=== PATIENT | male | born 1965 | race Hispanic/Latino ===

== ENCOUNTER 2021-04-15 09:38 | Emergency (ER) | payer SELFPAY ==
--- NOTE | 2021-04-15 12:39 | Emergency Department Report ---
ED General Adult HPI - General Chief complaint: Urogenital-Male Stated complaint: BLOOD IN URINE, LW BACK PAIN Time Seen by Provider: 04/15/21 12:29 Source: patient Mode of arrival: Ambulatory Limitations: No Limitations - History of Present Illness Initial comments: Patient is a 56-year-old male presents emergency with complaints of an exacerbation of his left flank pain that occurred over the last few days. Patient states that he is currently under the care of urologist. He states he has had multiple lithotripsies and currently has a ureteral stent in place. He states that they were planning to remove the stent next week on 04/22/21. He states that his doctor's office called him today and advised him that he had a urinary tract infection and reports that they called him medications but he has not started them and he states he believes it was amoxicillin. He has associated hematuria, bright red blood per rectum when wiping, dysuria, urinary frequency, urinary urgency. He denies any vomiting, diarrhea, fever, abdominal pain. Past medical history of CAD, A. fib, nephrolithiasis, internal hemorrhoids. He denies any medication allergies. - Related Data Previous Rx's Medication Instructions Recorded Last Taken Type Ciprofloxacin HCl [Ciprofloxacin 500 mg PO BID 7 Days #28 tablet 04/15/21 Unknown Rx TAB] Promethazine [Phenergan] 25 mg PO Q8HR PRN #10 tab 04/15/21 Unknown Rx traMADoL [Ultram 50 MG tab] 50 mg PO Q6HR PRN #12 tablet 04/15/21 Unknown Rx Allergies Allergy/AdvReac Type Severity Reaction Status Date / Time No Known Allergies Allergy Unverified 04/15/21 14:26 ED Review of Systems ROS: Stated complaint: BLOOD IN URINE, LW BACK PAIN Other details as noted in HPI Comment: All other systems reviewed and negative ED Past Medical Hx - Past Medical History Previous Medical History?: Yes Additional medical history: CAD, afib - Surgical History Past Surgical History?: Yes Additional Surgical History: lithotripsy, extensive surgical history, left knee replace - Social History Smoking Status: Never Smoker - Medications Home Medications: Home Medications Medication Instructions Recorded Confirmed Last Taken Type Ciprofloxacin HCl [Ciprofloxacin 500 mg PO BID 7 Days #28 tablet 04/15/21 Unknown Rx TAB] Promethazine [Phenergan] 25 mg PO Q8HR PRN #10 tab 04/15/21 Unknown Rx traMADoL [Ultram 50 MG tab] 50 mg PO Q6HR PRN #12 tablet 04/15/21 Unknown Rx ED Physical Exam - General Limitations: No Limitations General appearance: alert, in no apparent distress - Head Head exam: Present: atraumatic, normocephalic - Eye Eye exam: Present: normal appearance - ENT ENT exam: Present: mucous membranes moist - Respiratory Respiratory exam: Present: normal lung sounds bilaterally. Absent: respiratory distress, wheezes, rales, rhonchi, stridor, chest wall tenderness, accessory muscle use, decreased breath sounds, prolonged expiratory - Cardiovascular Cardiovascular Exam: Present: regular rate, normal rhythm, normal heart sounds. Absent: systolic murmur, diastolic murmur, rubs, gallop - GI/Abdominal GI/Abdominal exam: Present: soft, normal bowel sounds. Absent: distended, tenderness, guarding, rebound, rigid - Back Exam Back exam: Present: CVA tenderness (L). Absent: CVA tenderness (R) - Neurological Exam Neurological exam: Present: alert, oriented X3 - Psychiatric Psychiatric exam: Present: normal affect, normal mood - Skin Skin exam: Present: warm, dry, intact ED Course Vital Signs 04/15/21 04/15/21 04/15/21 10:38 14:54 15:05 Temperature 98.1 F 98.1 F 98.1 F Pulse Rate 107 H 100 H 100 H Respiratory 20 18 18 Rate Blood Pressure 188/117 138/93 Blood Pressure 138/98 [Right] O2 Sat by Pulse 98 99 98 Oximetry ED Medical Decision Making - Lab Data Result diagrams: 04/15/21 12:55 04/15/21 12:55 Lab Results 04/15/21 04/15/21 04/15/21 Range/Units 12:55 12:55 12:55 WBC 7.7 (4.5-11.0) K/mm3 RBC 4.50 (3.65-5.03) M/mm3 Hgb 13.6 (11.8-15.2) gm/dl Hct 40.8 (35.5-45.6) % MCV 91 (84-94) fl MCH 30 (28-32) pg MCHC 33 (32-34) % RDW 14.2 (13.2-15.2) % Plt Count 255 (140-440) K/mm3 Add Manual Diff Complete Total Counted 100 Seg Neuts % (Manual) 59.0 (40.0-70.0) % Lymphocytes % (Manual) 28.0 (13.4-35.0) % Monocytes % (Manual) 8.0 H (0.0-7.3) % Eosinophils % (Manual) 5.0 H (0.0-4.3) % Nucleated RBC % Not Reportable Seg Neutrophils # Man 4.5 (1.8-7.7) K/mm3 Band Neutrophils # 0.0 K/mm3 Lymphocytes # (Manual) 2.2 (1.2-5.4) K/mm3 Abs React Lymphs (Man) 0.0 K/mm3 Monocytes # (Manual) 0.6 (0.0-0.8) K/mm3 Eosinophils # (Manual) 0.4 (0.0-0.4) K/mm3 Basophils # (Manual) 0.0 (0.0-0.1) K/mm3 Metamyelocytes # 0.0 K/mm3 Myelocytes # 0.0 K/mm3 Promyelocytes # 0.0 K/mm3 Blast Cells # 0.0 K/mm3 WBC Morphology Not Reportable Hypersegmented Neuts Not Reportable Hyposegmented Neuts Not Reportable Hypogranular Neuts Not Reportable Smudge Cells Not Reportable Toxic Granulation Not Reportable Toxic Vacuolation Not Reportable Dohle Bodies Not Reportable Pelger-Huet Anomaly Not Reportable Meghana Rods Not Reportable Platelet Estimate Consistent w auto Clumped Platelets Not Reportable Plt Clumps, EDTA Not Reportable Large Platelets Not Reportable Giant Platelets Not Reportable Platelet Satelliting Not Reportable Plt Morphology Comment Not Reportable RBC Morphology Normal Dimorphic RBCs Not Reportable Polychromasia Not Reportable Hypochromasia Not Reportable Poikilocytosis Not Reportable Anisocytosis Not Reportable Microcytosis Not Reportable Macrocytosis Not Reportable Spherocytes Not Reportable Pappenheimer Bodies Not Reportable Sickle Cells Not Reportable Target Cells Not Reportable Tear Drop Cells Not Reportable Ovalocytes Not Reportable Helmet Cells Not Reportable [place] Bodies Not Reportable [place] Rings Not Reportable Cecily Cells Not Reportable Bite Cells Not Reportable Crenated Cell Not Reportable Elliptocytes Not Reportable Acanthocytes (Spur) Not Reportable Rouleaux Not Reportable Hemoglobin C Crystals Not Reportable Schistocytes Not Reportable Malaria parasites Not Reportable Macario Bodies Not Reportable Hem Pathologist Commnt No PT 12.6 (12.2-14.9) Sec. INR 0.89 (0.87-1.13) APTT 30.0 (24.2-36.6) Sec. Carbon Dioxide 25 (22-30) mmol/L BUN 15 (9-20) mg/dL Creatinine 0.9 (0.8-1.3) mg/dL Estimated GFR > 60 ml/min BUN/Creatinine Ratio 17 % Glucose 106 H (75-100) mg/dL Calcium 9.7 (8.4-10.2) mg/dL Total Bilirubin 0.40 (0.1-1.2) mg/dL AST 14 (5-40) units/L ALT 17 (7-56) units/L Alkaline Phosphatase 66 (35-129) units/L Total Protein 7.5 (6.3-8.2) g/dL Albumin 4.1 (3.9-5) g/dL Albumin/Globulin Ratio 1.2 % Urine Color (Yellow) Urine Turbidity (Clear) Urine pH (5.0-7.0) Ur Specific [place] (1.003-1.030) Urine Protein (Negative) mg/dL Urine Glucose (UA) (Negative) mg/dL Urine Ketones (Negative) mg/dL Urine Blood (Negative) Urine Nitrite (Negative) Urine Bilirubin (Negative) Urine Urobilinogen (<2.0) mg/dL Ur Leukocyte Esterase (Negative) Urine WBC (Auto) (0.0-6.0) /HPF Urine RBC (Auto) (0.0-6.0) /HPF Ur Transition Epith Cell /HPF Urine Mucus /HPF 04/15/21 Range/Units Unknown WBC (4.5-11.0) K/mm3 RBC (3.65-5.03) M/mm3 Hgb (11.8-15.2) gm/dl Hct (35.5-45.6) % MCV (84-94) fl MCH (28-32) pg MCHC (32-34) % RDW (13.2-15.2) % Plt Count (140-440) K/mm3 Add Manual Diff Total Counted Seg Neuts % (Manual) (40.0-70.0) % Lymphocytes % (Manual) (13.4-35.0) % Monocytes % (Manual) (0.0-7.3) % Eosinophils % (Manual) (0.0-4.3) % Nucleated RBC % Seg Neutrophils # Man (1.8-7.7) K/mm3 Band Neutrophils # K/mm3 Lymphocytes # (Manual) (1.2-5.4) K/mm3 Abs React Lymphs (Man) K/mm3 Monocytes # (Manual) (0.0-0.8) K/mm3 Eosinophils # (Manual) (0.0-0.4) K/mm3 Basophils # (Manual) (0.0-0.1) K/mm3 Metamyelocytes # K/mm3 Myelocytes # K/mm3 Promyelocytes # K/mm3 Blast Cells # K/mm3 WBC Morphology Hypersegmented Neuts Hyposegmented Neuts Hypogranular Neuts Smudge Cells Toxic Granulation Toxic Vacuolation Dohle Bodies Pelger-Huet Anomaly Meghana Rods Platelet Estimate Clumped Platelets Plt Clumps, EDTA Large Platelets Giant Platelets Platelet Satelliting Plt Morphology Comment RBC Morphology Dimorphic RBCs Polychromasia Hypochromasia Poikilocytosis Anisocytosis Microcytosis Macrocytosis Spherocytes Pappenheimer Bodies Sickle Cells Target Cells Tear Drop Cells Ovalocytes Helmet Cells [place] Bodies [place] Rings [place] Cells Bite Cells Crenated Cell Elliptocytes Acanthocytes (Spur) Rouleaux Hemoglobin C Crystals Schistocytes Malaria parasites Macario Bodies Hem Pathologist Commnt PT (12.2-14.9) Sec. INR (0.87-1.13) APTT (24.2-36.6) Sec. Carbon Dioxide (22-30) mmol/L BUN (9-20) mg/dL Creatinine (0.8-1.3) mg/dL Estimated GFR ml/min BUN/Creatinine Ratio % Glucose (75-100) mg/dL Calcium (8.4-10.2) mg/dL Total Bilirubin (0.1-1.2) mg/dL AST (5-40) units/L ALT (7-56) units/L Alkaline Phosphatase (35-129) units/L Total Protein (6.3-8.2) g/dL Albumin (3.9-5) g/dL Albumin/Globulin Ratio % Urine Color Red (Yellow) Urine Turbidity Cloudy (Clear) Urine pH 5.0 (5.0-7.0) Ur Specific [place] 1.018 (1.003-1.030) Urine Protein 100 mg/dl (Negative) mg/dL Urine Glucose (UA) Neg (Negative) mg/dL Urine Ketones Neg (Negative) mg/dL Urine Blood Lg (Negative) Urine Nitrite Neg (Negative) Urine Bilirubin Neg (Negative) Urine Urobilinogen < 2.0 (<2.0) mg/dL Ur Leukocyte Esterase Sm (Negative) Urine WBC (Auto) 64.0 H (0.0-6.0) /HPF Urine RBC (Auto) > 182.0 (0.0-6.0) /HPF Ur Transition Epith Cell 1 /HPF Urine Mucus Few /HPF Vital Signs 04/15/21 04/15/21 04/15/21 10:38 14:54 15:05 Temperature 98.1 F 98.1 F 98.1 F Pulse Rate 107 H 100 H 100 H Respiratory 20 18 18 Rate Blood Pressure 188/117 138/93 Blood Pressure 138/98 [Right] O2 Sat by Pulse 98 99 98 Oximetry - Radiology Data Radiology results: report reviewed Ordering Physician: GIOVANNI JOHNS Date of Service: 04/15/21 Procedure(s): CT abdomen pelvis wo con Accession Number(s): [id number] cc: GIOVANNI JOHNS CT ABDOMEN AND PELVIS WITHOUT CONTRAST INDICATION / CLINICAL INFORMATION: left flank pain, hematuria,hx of stent and stones. TECHNIQUE: Axial CT images were obtained through the abdomen and pelvis without IV contrast. Sagittal and coronal reformatted images. All CT scans at this location are performed using CT dose reduction for ALARA by means of automated exposure control. COMPARISON: None available. FINDINGS: LOWER CHEST: No significant abnormality. LIVER: No significant abnormality. GALLBLADDER: Surgically removed BILE DUCTS: No significant abnormality. PANCREAS: No significant abnormality. SPLEEN: No significant abnormality. ADRENALS: No significant abnormality. RIGHT KIDNEY and URETER: A 1 cm calyceal stone is identified at the superior pole. Punctate stone near mid pole. 7 mm stone near the inferior pole. No focal renal lesion, ureteral stones or hydronephrosis. LEFT KIDNEY and URETER: A left ureteral stent spans from the left renal pelvis to the bladder. A staghorn calculus in the inferior left kidney measures 6 x 10 x 23 mm. No focal renal lesion, ureteral stones or hydronephrosis. STOMACH and SMALL BOWEL: No significant abnormality. COLON: No significant abnormality. APPENDIX: No significant abnormality. PERITONEUM: No free fluid. No free air. No fluid collection. LYMPH NODES: No significant adenopathy. AORTA and ARTERIES: No significant abnormality. IVC and VEINS: No significant abnormality. URINARY BLADDER: No significant abnormality. REPRODUCTIVE ORGANS: No significant abnormality. ADDITIONAL FINDINGS: None. SKELETAL SYSTEM: No significant abnormality. IMPRESSION: Bilateral nephrolithiasis as described. No hydronephrosis. Signer Name: Navneet Luna Jr, MD Signed: 04/15/2021 1:32 PM Workstation Name: [id number] Transcribed By: TTR Dictated By: NAVNEET LUNA JR, MD Electronically Authenticated By: NAVNEET LUNA JR, MD Signed Date/Time: 04/15/21 1332 DD/ 1329 TD/TT: - Medical Decision Making Patient is a 56-year-old male presents emergency with complaints of an exacerbation of his left flank pain that occurred over the last few days. Patient states that he is currently under the care of urologist. He states he h as had multiple lithotripsies and currently has a ureteral stent in place. He states that they were planning to remove the stent next week on 04/22/21. He states that his doctor's office called him today and advised him that he had a urinary tract infection and reports that they called him medications but he has not started them and he states he believes it was amoxicillin. He has associated hematuria, bright red blood per rectum when wiping, dysuria, urinary frequency, urinary urgency. He denies any vomiting, diarrhea, fever, abdominal pain. Past medical history of CAD, A. fib, nephrolithiasis, internal hemorrhoids. He denies any medication allergies. Initial vitals with elevated heart rate and blood pressure which improved upon repeat. On exam patient has left CVA tenderness. Labs are stable. H&H is normal. No leukocytosis. Kidney function is normal. Called chemistry regarding pending of the electrolytes of the CMP, they advised that all tests were normal and that this occurred when [employer] went down and they state that in their system it is all within normal limits and that they will have the results scanned into the chart. UA shows evidence of red blood cells and white blood cells, will cover patient for UTI. CT abdomen pelvis without contrast Bilateral nephrolithiasis as described. No hydronephrosis. Discussed case with Dr. Tanner, ER attending who advised that patient can follow-up with outpatient urology and can follow-up with outpatient GI regarding intermittent rectal bleeding and advised that does not need further ED evaluation at this time. Patient given prescription for medications. Advised patient Please take medication as prescribed. Follow-up with your primary care doctor. Follow-up with a urologist. Follow-up with your GI doctor. Return to emergency room for any new or worsening symptoms. Critical care attestation.: If time is entered above; I have spent that time in minutes in the direct care of this critically ill patient, excluding procedure time. ED Disposition Clinical Impression: Left flank pain, Nephrolithiasis, Rectal bleeding UTI (urinary tract infection) Qualifiers: Urinary tract infection type: acute cystitis Hematuria presence: without hematuria Qualified Code(s): N30.00 - Acute cystitis without hematuria Disposition: HOME / SELF CARE / HOMELESS Is pt being admited?: No Does the pt Need Aspirin: No Condition: Stable Instructions: Kidney Stones, Rectal Bleeding, Urinary Tract Infection, Adult Additional Instructions: Please take medication as prescribed. Follow-up with your primary care doctor. Follow-up with a urologist. Follow-up with your GI doctor. Return to emergency room for any new or worsening symptoms. Prescriptions: Ciprofloxacin HCl [Ciprofloxacin TAB] 500 mg PO BID 7 Days #28 tablet Promethazine [Phenergan] 25 mg PO Q8HR PRN #10 tab PRN Reason: Nausea traMADoL [Ultram 50 MG tab] 50 mg PO Q6HR PRN #12 tablet PRN Reason: Pain Referrals: PRIMARY CARE,MD [Primary Care Provider] - 2-3 Days your, urologist [Other] - 2-3 Days [facility] [Provider Group] - 2-3 Days Time of Disposition: 14:39 Print Language: HEBREW
[2021-04-15 13:07] LABS: Hematocrit 40.8 % (35.5-45.6); Hemoglobin 13.6 gm/dl (11.8-15.2); Mean Corpuscular HGB Conc 33 % (32-34); Mean Corpuscular Volume 91 fl (84-94); Platelet Count 255 K/mm3 (140-440); Red Cell Distribution Width 14.2 % (13.2-15.2)
[2021-04-15 13:35] LABS: INR 0.89 (0.87-1.13)
--- NOTE | 2021-04-15 13:38 | Cat Scan Report ---
CT ABDOMEN AND PELVIS WITHOUT CONTRAST INDICATION / CLINICAL INFORMATION: left flank pain, hematuria,hx of stent and stones. TECHNIQUE: Axial CT images were obtained through the abdomen and pelvis without IV contrast. Sagittal and reyes l reformatted images. All CT scans at this location are performed using CT dose reduction for ALARA b y means of automated exposure control. COMPARISON: None available. FINDINGS: LOWER CHEST: No significant abnormality. LIVER: No significant abnormality. GALLBLADDER: Surgically removed BILE DUCTS: No significant abnormality. PANCREAS: No significant abnormality. SPLEEN: No significant abnormality. ADRENALS: No significant abnormality. RIGHT KIDNEY and URETER: A 1 cm calyceal stone is identified at the superior pole. Punctate stone francisco r mid pole. 7 mm stone near the inferior pole. No focal renal lesion, ureteral stones or hydronephros is. LEFT KIDNEY and URETER: A left ureteral stent spans from the left renal pelvis to the bladder. A stag horn calculus in the inferior left kidney measures 6 x 10 x 23 mm. No focal renal lesion, ureteral st ones or hydronephrosis. STOMACH and SMALL BOWEL: No significant abnormality. COLON: No significant abnormality. APPENDIX: No significant abnormality. PERITONEUM: No free fluid. No free air. No fluid collection. LYMPH NODES: No significant adenopathy. AORTA and ARTERIES: No significant abnormality. IVC and VEINS: No significant abnormality. URINARY BLADDER: No significant abnormality. REPRODUCTIVE ORGANS: No significant abnormality. ADDITIONAL FINDINGS: None. SKELETAL SYSTEM: No significant abnormality. IMPRESSION: Bilateral nephrolithiasis as described. No hydronephrosis. Signer Name: Navneet Luna Jr, MD Signed: 04/15/2021 1:32 PM Workstation Name: [id number]
[2021-04-15 13:48] LABS: Alanine Aminotransferase 17 units/L (7-56); Albumin 4.1 g/dL (3.9-5); BUN/Creatinine Ratio 17; Blood Urea Nitrogen 15 mg/dL (9-20); Calcium 9.7 mg/dL (8.4-10.2); Hemolysis Index 8
[2021-04-15 14:22] LABS: Bilirubin,Urine NEG (Negative); Blood,Urine LG (Negative); Color,Urine Red (Yellow); Mucus,Urine FEW /HPF; Urobilinogen,Urine < 2.0 mg/dL (<2.0)
[2021-04-15 14:23] LABS: RBC,Urine > 182.0 /HPF (0.0-6.0)
[2021-04-15] MEDS ORDERED: oxyCODONE /ACETAMINOPHEN 5-325MG TAB PO ONE (14:31)
[2021-04-15] MEDS ORDERED: KETOROLAC 60 MG/2 ML INJ IM ONE (14:31)
[2021-04-15] MEDS ORDERED: MORPHINE 4 MG/1 ML INJ IM ONE (14:37)
[2021-04-15] MEDS ORDERED: ONDANSETRON 4 MG ODT TAB PO ONE (14:38)
[2021-04-15 15:06] VITALS: BP 138/98
[2021-04-15 16:59] LABS: Total Cells Counted 100
[2021-04-15 17:00] LABS: Platelet Estimate Consistent w Auto; RBC Morphology Normal
== END 2021-04-15 15:18 | disposition home or self-care (01) ==
LOC: ED 09:38
DX: N20.0 Calculus of kidney (principal); N39.0 Urinary tract infection, site not specified; Z98.890 Other specified postprocedural states; Z79.899 Other long term (current) drug therapy
CPT/HCPCS: 36415; 74176; 80053; 81001; 85007; 85025; 85610; 85730; 87086; 96372; 99284; J1885

== ENCOUNTER 2021-05-23 23:31 | Emergency (ER) | payer OTHER ==
[2021-05-23] MEDS ORDERED: methylPREDNISolone Sod Succinate 125 MG/2 ML INJ IM ONE (23:53)
--- NOTE | 2021-05-23 23:54 | Emergency Department Report ---
ED General Adult HPI - General Chief complaint: Pain General Stated complaint: GOUT PUI?: No Time Seen by Provider: 05/23/21 23:51 Source: patient Mode of arrival: Ambulatory Limitations: No Limitations - History of Present Illness Initial comments: Patient is a 56-year-old male who presents emergency room with complaints of rig ht wrist pain. Patient states having gout flareup. Patient states he has history of gout. Patient states this feels like a flare. Patient states he typically gets in his wrist or his right big toe. Patient states the pain is 10. States the pain is worse with movement and palpation. Patient states the pain is better with rest. Patient states he came off his gout diet a couple days ago. Patient dates his symptoms been going on for 48 hours. Patient states symptoms are worsening. Patient denies recent travel. Patient denies recent international travel. Patient denies exposure to the novel coronavirus. Patient denies sick contacts. Patient denies fever and chills. Patient denies cough. Patient denies diarrhea. Patient denies coming in contact with anybody with symptoms of the novel coronavirus. -: Sudden Location: right, upper extremity Severity scale (0 -10): 10 Quality: stabbing Consistency: constant Improves with: rest Worsens with: movement Associated Symptoms: denies: confusion, chest pain, cough, diaphoresis, fever/chills Treatments Prior to Arrival: NSAID - Related Data Previous Rx's Medication Instructions Recorded Last Taken Type Ciprofloxacin HCl [Ciprofloxacin 500 mg PO BID 7 Days #28 tablet 04/15/21 Unknown Rx TAB] Promethazine [Phenergan] 25 mg PO Q8HR PRN #10 tab 04/15/21 Unknown Rx methylPREDNISolone [Medrol 4MG 4 mg PO DAILY 6 Days #1 tab.ds.pk 05/24/21 Unknown Rx DOSEPAK (21 tabs)] traMADoL [Ultram 50 MG tab] 50 mg PO Q6HR PRN #12 tablet 05/24/21 Unknown Rx Allergies Allergy/AdvReac Type Severity Reaction Status Date / Time No Known Allergies Allergy Verified 05/23/21 23:50 ED Review of Systems ROS: Stated complaint: GOUT Other details as noted in HPI Constitutional: denies: chills, fever Eyes: denies: eye pain, eye discharge, vision change ENT: denies: ear pain, throat pain Respiratory: denies: cough, shortness of breath, wheezing Cardiovascular: denies: chest pain, palpitations Endocrine: no symptoms reported Gastrointestinal: denies: abdominal pain, nausea, diarrhea Genitourinary: denies: urgency, dysuria Musculoskeletal: denies: back pain, joint swelling, arthralgia Skin: as per HPI. denies: rash, lesions Neurological: denies: headache, weakness, paresthesias Psychiatric: denies: anxiety, depression Hematological/Lymphatic: denies: easy bleeding, easy bruising ED Past Medical Hx - Past Medical History Previous Medical History?: Yes Hx Renal Disease: No Additional medical history: CAD, afib, gout, kidney stones - Surgical History Past Surgical History?: Yes Additional Surgical History: lithotripsy, extensive surgical history, left knee replace - Family History Family history: no significant - Social History Smoking Status: Never Smoker Substance Use Type: None - Medications Home Medications: Home Medications Medication Instructions Recorded Confirmed Last Taken Type Ciprofloxacin HCl [Ciprofloxacin 500 mg PO BID 7 Days #28 tablet 04/15/21 Unknown Rx TAB] Promethazine [Phenergan] 25 mg PO Q8HR PRN #10 tab 04/15/21 Unknown Rx methylPREDNISolone [Medrol 4MG 4 mg PO DAILY 6 Days #1 tab.ds.pk 05/24/21 Unknown Rx DOSEPAK (21 tabs)] traMADoL [Ultram 50 MG tab] 50 mg PO Q6HR PRN #12 tablet 05/24/21 Unknown Rx ED Physical Exam - General Limitations: No Limitations General appearance: alert, in no apparent distress - Head Head exam: Present: atraumatic, normocephalic - Eye Eye exam: Present: normal appearance - ENT ENT exam: Present: mucous membranes moist - Neck Neck exam: Present: normal inspection - Respiratory Respiratory exam: Present: normal lung sounds bilaterally. Absent: respiratory distress - Cardiovascular Cardiovascular Exam: Present: regular rate, normal rhythm. Absent: systolic murmur, diastolic murmur, rubs, gallop - GI/Abdominal GI/Abdominal exam: Present: soft, normal bowel sounds - Rectal Rectal exam: Present: deferred - Extremities Exam Extremities exam: Present: normal inspection (Except for right wrist), full ROM, tenderness (Right wrist), joint swelling (Right wrist) - Back Exam Back exam: Present: normal inspection - Neurological Exam Neurological exam: Present: alert, oriented X3 - Psychiatric Psychiatric exam: Present: normal affect, normal mood - Skin Skin exam: Present: warm, dry, intact, normal color. Absent: rash ED Course Vital Signs 05/23/21 23:50 Temperature 98.8 F Pulse Rate 107 H Respiratory 20 Rate Blood Pressure 148/102 O2 Sat by Pulse 97 Oximetry - Reevaluation(s) Reevaluation #1: Patient states his pain is better. I discussed all results and clinical findings with patient. I discussed plan of care with patient. Patient agrees with plan of care. Patient is stable for discharge. Patient will be discharged home. Patient given discharge instructions. Patient voiced understanding of discharge instructions. 05/24/21 00:58 ED Medical Decision Making - Lab Data Result diagrams: 05/23/21 23:59 05/23/21 23:59 - Medical Decision Making Patient is a 56-year-old male who presents emergency room with complaints of right wrist pain. Patient states this feels like a gout flareup. Patient h istory of gout. Patient's gout sites are right wrist and right great toe. Patient given Solu-Medrol after initial evaluation. Patient was given 5 mg of [place]. Patient had labs done which were essentially unremarkable. Patient has normal kidney function. Patient stable for discharge. Patient not require any further emergency medical service. Patient stable for discharge. Patient discharged home. I discussed all results and clinical findings with patient. I discussed plan of care with patient. Patient agrees with plan of care. Patient is stable for discharge. Patient will be discharged home. Patient given discharge instructions. Patient voiced understanding of discharge instructions. - Differential Diagnosis Gout flareup, wrist pain, Critical care attestation.: If time is entered above; I have spent that time in minutes in the direct care of this critically ill patient, excluding procedure time. ED Disposition Clinical Impression: Right wrist pain Gout flare Qualifiers: Gout site: wrist Gout etiology: unspecified cause Laterality: right Qualified Code(s): M10.9 - Gout, unspecified Disposition: 01 HOME / SELF CARE / HOMELESS Is pt being admited?: No Does the pt Need Aspirin: No Condition: Stable Instructions: Musculoskeletal Pain, Low-Purine Eating Plan, Wrist Pain, Adult, [id number] Additional Instructions: Patient to follow-up with primary care in 2 to 3 days. Patient to rest. Lindsay ent to increase water. Patient to avoid strenuous exercise or heavy lifting until cleared by primary care.. Patient to take Tylenol or ibuprofen as needed for pain. Patient to take meds as directed. Patient to return to the ER if condition worsens, changes or new symptoms arise. Prescriptions: methylPREDNISolone [Medrol 4MG DOSEPAK (21 tabs)] 4 mg PO DAILY 6 Days #1 t ab.ds.pk traMADoL [Ultram 50 MG tab] 50 mg PO Q6HR PRN #12 tablet PRN Reason: Pain Time of Disposition: 01:00
[2021-05-23 23:57] VITALS: BP 148/102
[2021-05-24 00:24] LABS: Hematocrit 35.3 % (35.5-45.6); Hemoglobin 11.8 gm/dl (11.8-15.2); Mean Corpuscular HGB Conc 34 % (32-34); Mean Corpuscular Volume 88 fl (84-94); Platelet Count 308 K/mm3 (140-440); Red Blood Count 4.02 M/mm3 (3.65-5.03); Red Cell Distribution Width 14.6 % (13.2-15.2)
[2021-05-24] MEDS ORDERED: HYDROcodone/ACETAMINOPHEN 5-325 MG TAB PO ONE (00:35)
[2021-05-24 00:38] LABS: Alanine Aminotransferase 11 units/L (7-56); Albumin 3.8 g/dL (3.9-5); BUN/Creatinine Ratio 18; Blood Urea Nitrogen 18 mg/dL (9-20); Calcium 8.8 mg/dL (8.4-10.2); Hemolysis Index 3
== END 2021-05-24 01:26 | disposition home or self-care (01) ==
LOC: ED 23:31
DX: M10.9 Gout, unspecified (principal); M25.531 Pain in right wrist; I25.10 Atherosclerotic heart disease of native coronary artery without angina pectoris; I48.91 Unspecified atrial fibrillation
CPT/HCPCS: 36415; 80053; 85027; 96372; 99283; J2930

== ENCOUNTER 2021-05-26 04:58 | Emergency (ER) | payer SELFPAY ==
[2021-05-26] MEDS ORDERED: KETOROLAC 30 MG/1 ML INJ IM ONE (05:12)
[2021-05-26] MEDS ORDERED: oxyCODONE /ACETAMINOPHEN 5-325MG TAB PO ONE (05:12)
[2021-05-26] MEDS ORDERED: dexAMETHasone 20 MG/5 ML VIAL IM ONE (05:12)
[2021-05-26] MEDS ORDERED: COLCHICINE 0.6 MG TAB PO ONE (05:13)
[2021-05-26 05:14] VITALS: BP 144/99
--- NOTE | 2021-05-26 05:27 | Emergency Department Report ---
ED Extremity Problem HPI - General Chief complaint: Extremity Injury, Upper Stated complaint: GOUT Source: patient Mode of arrival: Ambulatory Limitations: No Limitations - History of Present Illness Initial comments: Patient is a 56-year-old white male with history of coronary artery disease, A. fib, hypertension, chronic gouty arthropathy and kidney stones who presents to the ED with a complaint of acute onset persistent nontraumatic right wrist pain and swelling for the last 5 days, suspicious for his chronic recurrent gouty arthropathy pain. Patient states that the pain is constant, persistent and worse and that he has not been able to sleep because of worsening pain. Patient states that he was treated for the same pain about 3 days ago with no relief. Patient denies fall, traumatic injury, heavy lifting, fever, chills, nausea, vomiting, chest pain or shortness of breath, numbness and tingling or weakness of right arm or neck pain. MD Complaint: extremity pain (Right wrist pain and swelling), extremity swelling (Right wrist pain and swelling), joint swelling (Right wrist pain and swelling), joint paint (Right wrist pain and swelling), other (Chronic gout arthropathy flare) -: Sudden, days(s) (5) Location: right, upper extremity (Right wrist pain and swelling) History of Same: Yes (Chronic gouty arthropathy) -: Yes myalgia, Yes arthralgia, No fever, No associated dyspnea, No associated chest pain Radiation: distal Severity scale (0 -10): 8 Quality: aching, sharp Consistency: constant Improves with: nothing Worsens with: weight bearing, exertion, palpation Associated Symptoms: denies other symptoms, arthralgias (Swelling, painful right wrist and forearm). denies: chest pain, shortness of breath, myalgias - Related Data Previous Rx's Medication Instructions Recorded Last Taken Type Ciprofloxacin HCl [Ciprofloxacin 500 mg PO BID 7 Days #28 tablet 04/15/21 Unknown Rx TAB] Promethazine [Phenergan] 25 mg PO Q8HR PRN #10 tab 04/15/21 Unknown Rx methylPREDNISolone [Medrol 4MG 4 mg PO DAILY 6 Days #1 tab.ds.pk 05/24/21 Unknown Rx DOSEPAK (21 tabs)] traMADoL [Ultram 50 MG tab] 50 mg PO Q6HR PRN #12 tablet 05/24/21 Unknown Rx Colchicine [Colcrys] 0.6 mg PO DAILY #30 tablet 05/26/21 Unknown Rx HYDROcodone/APAP 5-325 [[place] 1 each PO Q6HR PRN #12 tablet 05/26/21 Unknown Rx 5/325] Indomethacin 50 mg PO Q8H PRN #60 capsule 05/26/21 Unknown Rx predniSONE [Deltasone] 60 mg PO QDAY #15 tab 05/26/21 Unknown Rx Allergies Allergy/AdvReac Type Severity Reaction Status Date / Time No Known Allergies Allergy Verified 05/23/21 23:50 ED Review of Systems ROS: Stated complaint: GOUT Other details as noted in HPI Constitutional: denies: chills, fever Eyes: denies: eye pain, eye discharge, vision change ENT: denies: ear pain, throat pain Respiratory: denies: cough, shortness of breath, wheezing Cardiovascular: denies: chest pain, palpitations Endocrine: no symptoms reported Gastrointestinal: denies: abdominal pain, nausea, diarrhea Genitourinary: denies: urgency, dysuria Musculoskeletal: joint swelling (Right wrist pain and swelling), arthralgia (Right wrist pain and swelling). denies: back pain Skin: denies: rash, lesions Neurological: denies: headache, weakness, paresthesias Psychiatric: denies: anxiety, depression Hematological/Lymphatic: denies: easy bleeding, easy bruising ED Past Medical Hx - Past Medical History Previous Medical History?: No Hx Heart Attack/AMI: Yes Hx Renal Disease: No Hx Kidney Stones: Yes Additional medical history: CAD, afib, gout, kidney stones - Surgical History Past Surgical History?: Yes Additional Surgical History: lithotripsy, extensive surgical history, left knee replace - Social History Smoking Status: Never Smoker Substance Use Type: None - Medications Home Medications: Home Medications Medication Instructions Recorded Confirmed Last Taken Type Ciprofloxacin HCl [Ciprofloxacin 500 mg PO BID 7 Days #28 tablet 04/15/21 Unknown Rx TAB] Promethazine [Phenergan] 25 mg PO Q8HR PRN #10 tab 04/15/21 Unknown Rx methylPREDNISolone [Medrol 4MG 4 mg PO DAILY 6 Days #1 tab.ds.pk 05/24/21 Unknown Rx DOSEPAK (21 tabs)] traMADoL [Ultram 50 MG tab] 50 mg PO Q6HR PRN #12 tablet 05/24/21 Unknown Rx Colchicine [Colcrys] 0.6 mg PO DAILY #30 tablet 05/26/21 Unknown Rx HYDROcodone/APAP 5-325 [[place] 1 each PO Q6HR PRN #12 tablet 05/26/21 Unknown Rx 5/325] Indomethacin 50 mg PO Q8H PRN #60 capsule 05/26/21 Unknown Rx predniSONE [Deltasone] 60 mg PO QDAY #15 tab 05/26/21 Unknown Rx ED Physical Exam - General Limitations: No Limitations General appearance: alert, in no apparent distress - Head Head exam: Present: atraumatic, normocephalic, normal inspection - Eye Eye exam: Present: normal appearance, PERRL, EOMI Pupils: Present: normal accommodation - ENT ENT exam: Present: normal exam, normal orophraynx, mucous membranes moist, TM's normal bilaterally, normal external ear exam - Neck Neck exam: Present: normal inspection, full ROM. Absent: tenderness - Respiratory Respiratory exam: Present: normal lung sounds bilaterally. Absent: respiratory distress, wheezes, rhonchi, stridor, chest wall tenderness, accessory muscle use, decreased breath sounds - Cardiovascular Cardiovascular Exam: Present: normal rhythm, tachycardia, normal heart sounds. Absent: systolic murmur, diastolic murmur, rubs, gallop - GI/Abdominal GI/Abdominal exam: Present: soft, normal bowel sounds. Absent: tenderness, guarding, hyperactive bowel sounds, hypoactive bowel sounds, organomegaly, mass - Extremities Exam Extremities exam: Present: normal inspection, tenderness (Palpable severe right wrist tenderness and mild swelling with limited range of motion due to pain), normal capillary refill, joint swelling (Right wrist swelling). Absent: full ROM (Limited range of motion of right wrist due to pain), calf tenderness - Back Exam Back exam: Present: normal inspection, full ROM. Absent: tenderness, CVA tenderness (R), CVA tenderness (L), muscle spasm, paraspinal tenderness, vertebral tenderness - Neurological Exam Neurological exam: Present: alert, oriented X3, CN II-XII intact, normal gait, reflexes normal - Psychiatric Psychiatric exam: Present: normal affect, normal mood - Skin Skin exam: Present: warm, dry, intact, normal color. Absent: rash ED Course Vital Signs 05/26/21 05:12 Temperature 97.7 F Pulse Rate 106 H Respiratory 20 Rate Blood Pressure 144/99 [Left] O2 Sat by Pulse 98 Oximetry ED Medical Decision Making - Medical Decision Making This is a 56-year-old white male with history of coronary artery disease, A. fib, hypertension, chronic gouty arthropathy and kidney stones who presents to the ED with a complaint of acute onset persistent nontraumatic right wrist pain and swelling for the last 5 days, suspicious for his chronic recurrent gouty arthropathy pain. Patient states that the pain is constant, persistent and worse and that he has not been able to sleep because of worsening pain. Patient states that he was treated for the same pain about 3 days ago with no relief. In the ED, patient is alert and oriented x3 and is not in any distress but appears to be in significant pain, tachycardic but afebrile in triage. Patient was treated for pain in the ED and on reevaluation, patient's pain is well controlled medications. Patient will discharge home on pain medications and advised to follow-up with his primary care physician in 5 to 7 days for reevaluation or return to the ED immediately if symptoms get worse. - Differential Diagnosis Gout; osteoarthritis; muscle strain; tendinitis; Critical care attestation.: If time is entered above; I have spent that time in minutes in the direct care of this critically ill patient, excluding procedure time. ED Disposition Clinical Impression: Chronic gouty arthropathy, Pain and swelling of right wrist Disposition: 01 HOME / SELF CARE / HOMELESS Is pt being admited?: No Does the pt Need Aspirin: No Condition: Stable Instructions: Uric Acid Nephropathy, Wrist Pain, Adult, [id number], Joint Pain, [id number] Additional Instructions: Take medication with food, drink plenty of fluids and follow-up with your primary care physician in 7 to 10 days for reevaluation. Return to the ED immediately if symptoms get worse. Prescriptions: Colchicine [Colcrys] 0.6 mg PO DAILY #30 tablet predniSONE [Deltasone] 60 mg PO QDAY #15 tab Indomethacin 50 mg PO Q8H PRN #60 capsule PRN Reason: Pain , Severe (7-10) HYDROcodone/APAP 5-325 [[place] 5/325] 1 each PO Q6HR PRN #12 tablet PRN Reason: Pain Referrals: [facility] [Provider Group] - 3-5 Days Time of Disposition: 05:30 Print Language: PARAGUAYAN
== END 2021-05-26 06:24 | disposition home or self-care (01) ==
LOC: ED 04:58
DX: M1A.9XX0 Chronic gout, unspecified, without tophus (tophi) (principal); M25.531 Pain in right wrist; Z98.890 Other specified postprocedural states; Z87.442 Personal history of urinary calculi; Z79.899 Other long term (current) drug therapy
CPT/HCPCS: 96372; 99282; J1100; J1885

== ENCOUNTER 2021-10-02 03:42 | Emergency (ER) | payer OTHER ==
[2021-10-02 04:09] VITALS: BP 127/81
[2021-10-02] MEDS ORDERED: predniSONE 20 MG TAB PO ONE (04:43)
[2021-10-02] MEDS ORDERED: oxyCODONE /ACETAMINOPHEN 5-325MG TAB PO ONE (04:43)
--- NOTE | 2021-10-02 06:04 | Emergency Department Report ---
ED General Adult HPI - General Chief complaint: Extremity Injury, Upper Stated complaint: GOUT Time Seen by Provider: 10/02/21 05:46 Source: patient Mode of arrival: Ambulatory Limitations: No Limitations - History of Present Illness Initial comments: 56-year-old male with a past medical history of gouty arthritis presents emerged department complaining of another flareup due to something he may have been a couple days ago. Pain is dull and throbbing primarily to his right wrist area and some vague discomfort to the right foot which is typical flare of regions for his gouty arthritis. No fever, chills, sweats. No trauma. No nausea, no vomiting, no hemoptysis no hematemesis hematochezia -: Gradual Radiation: non-radiation Severity scale (0 -10): 10 Quality: aching, dull Improves with: none Worsens with: none Associated Symptoms: denies: chest pain, cough, loss of appetite, malaise, nausea/vomiting, rash, syncope, weakness Treatments Prior to Arrival: none - Related Data Previous Rx's Medication Instructions Recorded Last Taken Type Ciprofloxacin HCl [Ciprofloxacin 500 mg PO BID 7 Days #28 tablet 04/15/21 Unknown Rx TAB] Promethazine [Phenergan] 25 mg PO Q8HR PRN #10 tab 04/15/21 Unknown Rx methylPREDNISolone [Medrol 4MG 4 mg PO DAILY 6 Days #1 tab.ds.pk 05/24/21 Unknown Rx DOSEPAK (21 tabs)] HYDROcodone/APAP 5-325 [[place] 1 each PO Q6HR PRN #12 tablet 05/26/21 Unknown Rx 5/325] predniSONE [Deltasone] 60 mg PO QDAY #15 tab 05/26/21 Unknown Rx Colchicine [Colcrys] 0.6 mg PO DAILY #30 tablet 10/02/21 Unknown Rx Indomethacin 50 mg PO Q8H PRN #60 capsule 10/02/21 Unknown Rx traMADoL [Ultram 50 MG tab] 50 mg PO Q6HR PRN #12 tablet 10/02/21 Unknown Rx Allergies Allergy/AdvReac Type Severity Reaction Status Date / Time No Known Allergies Allergy Verified 05/23/21 23:50 ED Review of Systems ROS: Stated complaint: GOUT Other details as noted in HPI Comment: All other systems reviewed and negative ED Past Medical Hx - Past Medical History Hx Heart Attack/AMI: Yes Hx Renal Disease: No Hx Kidney Stones: Yes Additional medical history: CAD, afib, gout, kidney stones - Surgical History Additional Surgical History: lithotripsy, extensive surgical history, left knee replace - Social History Smoking Status: Never Smoker Substance Use Type: None - Medications Home Medications: Home Medications Medication Instructions Recorded Confirmed Last Taken Type Ciprofloxacin HCl [Ciprofloxacin 500 mg PO BID 7 Days #28 tablet 04/15/21 Unknown Rx TAB] Promethazine [Phenergan] 25 mg PO Q8HR PRN #10 tab 04/15/21 Unknown Rx methylPREDNISolone [Medrol 4MG 4 mg PO DAILY 6 Days #1 tab.ds.pk 05/24/21 Unknown Rx DOSEPAK (21 tabs)] HYDROcodone/APAP 5-325 [[place] 1 each PO Q6HR PRN #12 tablet 05/26/21 Unknown Rx 5/325] predniSONE [Deltasone] 60 mg PO QDAY #15 tab 05/26/21 Unknown Rx Colchicine [Colcrys] 0.6 mg PO DAILY #30 tablet 10/02/21 Unknown Rx Indomethacin 50 mg PO Q8H PRN #60 capsule 10/02/21 Unknown Rx traMADoL [Ultram 50 MG tab] 50 mg PO Q6HR PRN #12 tablet 10/02/21 Unknown Rx ED Physical Exam - General Limitations: No Limitations General appearance: alert, in no apparent distress - Head Head exam: Present: atraumatic, normocephalic - Eye Eye exam: Present: normal appearance, PERRL, EOMI Pupils: Present: normal accommodation - ENT ENT exam: Present: normal exam, normal orophraynx, mucous membranes moist, TM's normal bilaterally - Neck Neck exam: Present: normal inspection, full ROM. Absent: tenderness, lymphadenopathy - Respiratory Respiratory exam: Present: normal lung sounds bilaterally. Absent: respiratory distress - Cardiovascular Cardiovascular Exam: Present: regular rate, normal rhythm. Absent: systolic murmur, diastolic murmur, rubs, gallop - GI/Abdominal GI/Abdominal exam: Present: soft, normal bowel sounds - Rectal Rectal exam: Present: deferred - Extremities Exam Extremities exam: Present: normal inspection, tenderness, joint swelling (Right wrist region with palpation. Pain with supination and pronation.) - Back Exam Back exam: Present: normal inspection. Absent: CVA tenderness (R), CVA tenderness (L) - Neurological Exam Neurological exam: Present: alert, oriented X3, CN II-XII intact, normal gait - Psychiatric Psychiatric exam: Present: normal affect, normal mood - Skin Skin exam: Present: warm, dry, intact, normal color. Absent: rash ED Course Vital Signs 10/02/21 04:05 Temperature 98.1 F Pulse Rate 111 H Respiratory 16 Rate Blood Pressure 127/81 [Right] O2 Sat by Pulse 99 Oximetry Critical care attestation.: If time is entered above; I have spent that time in minutes in the direct care of this critically ill patient, excluding procedure time. ED Disposition Clinical Impression: Gout attack Disposition: HOME / SELF CARE / HOMELESS Is pt being admited?: No Does the pt Need Aspirin: No Condition: Stable Instructions: Low-Purine Eating Plan Prescriptions: Colchicine [Colcrys] 0.6 mg PO DAILY #30 tablet Indomethacin 50 mg PO Q8H PRN #60 capsule PRN Reason: Pain , Severe (7-10) traMADoL [Ultram 50 MG tab] 50 mg PO Q6HR PRN #12 tablet PRN Reason: Pain Referrals: [facility] [Provider Group] - 3-5 Days PRIMARY CARE, [Primary Care Provider] - 3-5 Days
== END 2021-10-02 06:09 | disposition home or self-care (01) ==
LOC: ED 03:42
DX: M10.9 Gout, unspecified (principal); N20.0 Calculus of kidney; I21.9 Acute myocardial infarction, unspecified; Z98.890 Other specified postprocedural states
CPT/HCPCS: 99282

== ENCOUNTER 2021-10-26 11:33 | Emergency (ER) | payer OTHER ==
[2021-10-26] MEDS ORDERED: ACETAMINOPHEN 325 MG TAB PO STA (11:59)
[2021-10-26] MEDS ORDERED: KETOROLAC 30 MG/1 ML INJ IM ONE (11:59)
--- NOTE | 2021-10-26 12:00 | Emergency Department Report ---
ED Lower Extremity HPI - General Chief Complaint: Extremity Problem,Nontraumatic Stated Complaint: RT KNEE PAIN Time Seen by Provider: 10/26/21 11:56 Source: patient, RN notes reviewed, old records reviewed Mode of arrival: Ambulatory Limitations: No Limitations - History of Present Illness Initial Comments: The patient is a 56-year-old gentleman with a past medical history of body mass index 40.3, distant history of left total knee replacement while in [place], presenting to the ER today with complaint of nontraumatic right medial knee pain, which happened yesterday after getting up and twisting at work. He denies additional injuries and complaints. The pain is sharp and throbbing, and increases with palpation and range of motion. It decreases with rest. It does not radiate anywhere. MD Complaint: knee injury -: days(s) Injury: Knee: Right Type of Injury: other (As per history of present illness) Place: work Severity: moderate Improves With: rest Worsens With: movement, palpation Context: other (Per history of present illness) Associated Symptoms: swelling, able to partially bear weight - Related Data Previous Rx's Medication Instructions Recorded Last Taken Type Promethazine [Phenergan] 25 mg PO Q8HR PRN #10 tab 04/15/21 Unknown Rx methylPREDNISolone [Medrol 4MG 4 mg PO DAILY 6 Days #1 tab.ds.pk 05/24/21 Unknown Rx DOSEPAK (21 tabs)] predniSONE [Deltasone] 60 mg PO QDAY #15 tab 05/26/21 Unknown Rx Colchicine [Colcrys] 0.6 mg PO DAILY #30 tablet 10/02/21 Unknown Rx Indomethacin 50 mg PO Q8H PRN #60 capsule 10/02/21 Unknown Rx Acetaminophen [Non-Aspirin Extra 650 mg PO Q6HR PRN #30 tablet 10/26/21 Unknown Rx Strength] Ibuprofen [Motrin] 600 mg PO Q8H PRN #30 tablet 10/26/21 Unknown Rx Allergies Allergy/AdvReac Type Severity Reaction Status Date / Time No Known Allergies Allergy Verified 05/23/21 23:50 ED Review of Systems ROS: Stated complaint: RT KNEE PAIN Other details as noted in HPI Comment: All other systems reviewed and negative Musculoskeletal: joint swelling, arthralgia, myalgia ED Past Medical Hx - Past Medical History Hx Heart Attack/AMI: Yes Hx Renal Disease: No Hx Kidney Stones: Yes Additional medical history: CAD, afib, gout, kidney stones - Surgical History Additional Surgical History: lithotripsy, extensive surgical history, left knee replace - Social History Smoking Status: Never Smoker Substance Use Type: None - Medications Home Medications: Home Medications Medication Instructions Recorded Confirmed Last Taken Type Promethazine [Phenergan] 25 mg PO Q8HR PRN #10 tab 04/15/21 Unknown Rx methylPREDNISolone [Medrol 4MG 4 mg PO DAILY 6 Days #1 tab.ds.pk 05/24/21 Unknown Rx DOSEPAK (21 tabs)] predniSONE [Deltasone] 60 mg PO QDAY #15 tab 05/26/21 Unknown Rx Colchicine [Colcrys] 0.6 mg PO DAILY #30 tablet 10/02/21 Unknown Rx Indomethacin 50 mg PO Q8H PRN #60 capsule 10/02/21 Unknown Rx Acetaminophen [Non-Aspirin Extra 650 mg PO Q6HR PRN #30 tablet 10/26/21 Unknown Rx Strength] Ibuprofen [Motrin] 600 mg PO Q8H PRN #30 tablet 10/26/21 Unknown Rx ED Physical Exam - General Limitations: No Limitations General appearance: alert, in no apparent distress, obese - Head Head exam: Present: atraumatic, normocephalic - Eye Eye exam: Present: normal appearance, EOMI. Absent: nystagmus - ENT ENT exam: Present: normal exam, normal orophraynx, mucous membranes moist, normal external ear exam - Neck Neck exam: Present: normal inspection, full ROM. Absent: tenderness, meningismus - Respiratory Respiratory exam: Present: normal lung sounds bilaterally. Absent: respiratory distress, wheezes, rales, rhonchi, stridor, decreased breath sounds - Cardiovascular Cardiovascular Exam: Present: normal rhythm, tachycardia, normal heart sounds. Absent: bradycardia, irregular rhythm, systolic murmur, diastolic murmur, rubs, gallop - GI/Abdominal GI/Abdominal exam: Present: soft. Absent: distended, tenderness, guarding, rebound, rigid, pulsatile mass - Rectal Rectal exam: Present: deferred - Extremities Exam Extremities exam: Present: normal inspection, full ROM, tenderness (There is point tenderness on the medial aspect of the right knee. Range of motion is preserved. There is no redness, warmth, pus or streaking. The muscular compartments are soft), normal capillary refill, other (2+ pulses noted in the bilateral upper extremities. There is no long bony tenderness. The pelvis is stable. The right lower extremity is nontender, with the exception of medial aspect of the right knee.). Absent: calf tenderness - Back Exam Back exam: Present: normal inspection. Absent: tenderness, CVA tenderness (R), CVA tenderness (L), paraspinal tenderness, vertebral tenderness - Neurological Exam Neurological exam: Present: alert, oriented X3, normal gait, other (No facial droop. Tongue midline. Extraocular movements intact bilaterally. Facial sensation intact to light touch in V1, V2, V3 distribution bilaterally. 5 and a 5 strength in 4 extremities. Sensation intact to light touch in 4 extremities.). Absent: motor sensory deficit - Psychiatric Psychiatric exam: Present: normal affect, normal mood - Skin Skin exam: Present: warm, dry, intact, normal color. Absent: rash ED Course Vital Signs 10/26/21 10/26/21 11:43 12:28 Temperature 98.1 F 98.2 F Pulse Rate 123 H 62 Respiratory 18 18 Rate Blood Pressure 138/107 129/99 O2 Sat by Pulse 97 97 Oximetry - Reevaluation(s) Reevaluation #1: 10/26/21 12:48 Tachycardia resolved. Feels slightly improved. Discussed findings with rajiv holland. Discussed recommendations with patient. He is reliable to follow-up as an outpatient. ED Lower Extremity MDM - Lab Data Vital Signs 10/26/21 11:43 Temperature 98.1 F Pulse Rate 123 H Respiratory 18 Rate Blood Pressure 138/107 O2 Sat by Pulse 97 Oximetry - Radiology Data Radiology results: report reviewed, image reviewed interpreted by me: 3 views of the right knee are obtained via x-ray, interpreted by myself, show no fracture, no dislocation. Right knee-4 views INDICATION: right medial knee pain. COMPARISON: None available. IMPRESSION: No acute osseous abnormality. Normal alignment. Mild tricompartmental DJD with faint chondrocalcinosis. Soft tissues are unremarkable. Signer Name: Raudle Rivera MD Signed: 10/26/2021 11:23 AM Workstation Name: [id number] - Medical Decision Making Differential diagnosis, including but not limited to: Sprain, strain, ligamentous injury Assessment and plan: 56-year-old gentleman, who is afebrile, with reassuring vital signs with improving tachycardia, presenting with complaint of isolated right medial knee pain. He is ambulatory and neurovascularly intact. X-rays show no fracture or dislocation. Weightbearing as tolerated, bisi Kerlix wrap, cane for ambulatory support, Tylenol, Motrin, outpatient orthopedics follow-up. Critical care attestation.: If time is entered above; I have spent that time in minutes in the direct care of this critically ill patient, excluding procedure time. ED Disposition Clinical Impression: Right knee pain Qualifiers: Chronicity: acute Qualified Code(s): M25.561 - Pain in right knee Right knee DJD Qualifiers: Osteoarthritis type: unspecified Qualified Code(s): M17.11 - Unilateral primary osteoarthritis, right knee Disposition: HOME / SELF CARE / HOMELESS Is pt being admited?: No Does the pt Need Aspirin: No Condition: Good Instructions: Acute Knee Pain, Adult, RICE Therapy for Routine Care of Injuries Additional Instructions: Alternate ice packs and heat packs as needed for physical pain. Take the prescribed pain medication as needed and directed. Weightbearing as tolerated, ambulate with a cane as needed and tolerated. Follow-up with an orthopedist or sports medicine physician within the next 7 to 10 days. Please return to the emergency room right away with new pain, worsened pain, migration of pain, projectile vomiting, change in mental status, confusion, inability tolerate liquid feeds, new, worsened or different symptoms not present on the initial emergency room evaluation Prescriptions: Ibuprofen [Motrin] 600 mg PO Q8H PRN #30 tablet PRN Reason: Pain Acetaminophen [Non-Aspirin Extra Strength] 650 mg PO Q6HR PRN #30 tablet PRN Reason: Pain , Severe (7-10) Referrals: PITA CHAPMAN MD [Staff Physician] - 3-5 Days [facility] [Provider Group] - 3-5 Days Forms: Work/School Release Form(ED)
--- NOTE | 2021-10-26 12:28 | XRay Report ---
Right knee-4 views INDICATION: right medial knee pain. COMPARISON: None available. IMPRESSION: No acute osseous abnormality. Normal alignment. Mild tricompartmental DJD with faint ch ondrocalcinosis. Soft tissues are unremarkable. Signer Name: Raudel Rivera MD Signed: 10/26/2021 12:23 PM Workstation Name: [id number]
[2021-10-26 12:41] VITALS: BP 129/99
[2021-10-26] MEDS ORDERED: traMADol 50 MG TAB PO ONE (12:48)
== END 2021-10-26 13:08 | disposition home or self-care (01) ==
LOC: ED 11:33
DX: M25.561 Pain in right knee (principal); M17.11 Unilateral primary osteoarthritis, right knee
CPT/HCPCS: 73562; 96372; 99283; J1885

== ENCOUNTER 2021-11-03 04:49 | Emergency (ER) | payer OTHER ==
[2021-11-03 04:56] VITALS: BP 159/109
[2021-11-03] MEDS ORDERED: oxyCODONE /ACETAMINOPHEN 5-325MG TAB PO ONE (09:39)
[2021-11-03] MEDS ORDERED: KETOROLAC 10 MG TAB PO ONE (09:39)
[2021-11-03] MEDS ORDERED: predniSONE 20 MG TAB PO ONE (09:39)
--- NOTE | 2021-11-03 10:22 | Vascular Lab Report ---
DUPLEX DOPPLER LOWER EXTREMITY VEINS, RIGHT INDICATION: swelling and pain, r/o dvt. TECHNIQUE: Duplex doppler imaging was performed through the veins of the right lower extremity using venous compression and other maneuvers. COMPARISON: No relevant prior imaging study available. FINDINGS: Right Common femoral vein: Negative. Right Superficial femoral vein: Negative. Right Popliteal vein: Negative. Right Calf veins: Negative. Additional findings: A moderate to large simple appearing right knee effusion is partially imaged.. IMPRESSION: No sonographic evidence for DVT in the right lower extremity. Knee effusion. Signer Name: Navneet Luna Jr, MD Signed: 11/03/2021 10:18 AM Workstation Name: [id number]
--- NOTE | 2021-11-03 10:26 | Emergency Department Report ---
ED Extremity Problem HPI - General Chief complaint: Extremity Injury, Lower Stated complaint: RIGHT KNEE PAIN AND SWELLING Time Seen by Provider: 11/03/21 09:33 Source: patient Mode of arrival: Ambulatory Limitations: Other - History of Present Illness Initial comments: 56-year-old white male with no past medical history presents to the emergency department for evaluation of right knee pain. He states that he has had the knee pain for over a week and on last Wednesday he was getting out of the car and felt like a torque in his knee and has been having pain since then. He was seen here Wednesday a week ago had a negative x-ray, and was diagnosed with a right knee sprain. He states that he has been [employer] wrapped and he stayed off work for 2 days, but then he worked for the last 2 2 days and has had significant swelling and pain to the right knee and right calf since then. He denies any new injury. He denies chest pain, shortness of breath, and hemoptysis. MD Complaint: extremity pain, extremity swelling, joint swelling, joint paint -: Gradual, week(s) (1.5) Location: right, knee History of Same: No -: No myalgia, No arthralgia, No fever, No associated dyspnea, No associated chest pain Radiation: none Severity scale (0 -10): 10 Quality: aching Consistency: constant Worsens with: weight bearing, walking, palpation Associated Symptoms: denies other symptoms - Related Data Previous Rx's Medication Instructions Recorded Last Taken Type Promethazine [Phenergan] 25 mg PO Q8HR PRN #10 tab 04/15/21 Unknown Rx methylPREDNISolone [Medrol 4MG 4 mg PO DAILY 6 Days #1 tab.ds.pk 05/24/21 Unknown Rx DOSEPAK (21 tabs)] predniSONE [Deltasone] 60 mg PO QDAY #15 tab 05/26/21 Unknown Rx Colchicine [Colcrys] 0.6 mg PO DAILY #30 tablet 10/02/21 Unknown Rx Indomethacin 50 mg PO Q8H PRN #60 capsule 10/02/21 Unknown Rx Acetaminophen [Non-Aspirin Extra 650 mg PO Q6HR PRN #30 tablet 10/26/21 Unknown Rx Strength] Ibuprofen [Motrin] 600 mg PO Q8H PRN #30 tablet 10/26/21 Unknown Rx Acetaminophen/Codeine [Tylenol 1 tab PO Q6H PRN #12 tab 11/03/21 Unknown Rx /Codeine # 3 tab] methylPREDNISolone [Medrol 4MG 4 mg PO DAILY #1 pack 11/03/21 Unknown Rx DOSEPAK (21 tabs)] Allergies Allergy/AdvReac Type Severity Reaction Status Date / Time No Known Allergies Allergy Verified 05/23/21 23:50 ED Review of Systems ROS: Stated complaint: RIGHT KNEE PAIN AND SWELLING Other details as noted in HPI Comment: All other systems reviewed and negative Constitutional: denies: chills, fever Respiratory: denies: shortness of breath Cardiovascular: denies: chest pain, palpitations, dyspnea on exertion Gastrointestinal: denies: abdominal pain, nausea, vomiting Musculoskeletal: denies: back pain Neurological: denies: headache, weakness ED Past Medical Hx - Past Medical History Hx Heart Attack/AMI: Yes Hx Renal Disease: No Hx Kidney Stones: Yes Additional medical history: CAD, afib, gout, kidney stones - Surgical History Additional Surgical History: lithotripsy, extensive surgical history, left knee replace - Social History Smoking Status: Never Smoker Substance Use Type: None - Medications Home Medications: Home Medications Medication Instructions Recorded Confirmed Last Taken Type Promethazine [Phenergan] 25 mg PO Q8HR PRN #10 tab 04/15/21 Unknown Rx methylPREDNISolone [Medrol 4MG 4 mg PO DAILY 6 Days #1 tab.ds.pk 05/24/21 Unknown Rx DOSEPAK (21 tabs)] predniSONE [Deltasone] 60 mg PO QDAY #15 tab 05/26/21 Unknown Rx Colchicine [Colcrys] 0.6 mg PO DAILY #30 tablet 10/02/21 Unknown Rx Indomethacin 50 mg PO Q8H PRN #60 capsule 10/02/21 Unknown Rx Acetaminophen [Non-Aspirin Extra 650 mg PO Q6HR PRN #30 tablet 10/26/21 Unknown Rx Strength] Ibuprofen [Motrin] 600 mg PO Q8H PRN #30 tablet 10/26/21 Unknown Rx Acetaminophen/Codeine [Tylenol 1 tab PO Q6H PRN #12 tab 11/03/21 Unknown Rx /Codeine # 3 tab] methylPREDNISolone [Medrol 4MG 4 mg PO DAILY #1 pack 11/03/21 Unknown Rx DOSEPAK (21 tabs)] ED Physical Exam - General Limitations: Other General appearance: alert, in no apparent distress - Head Head exam: Present: atraumatic, normocephalic - Eye Eye exam: Present: normal appearance. Absent: conjunctival injection - Neck Neck exam: Present: normal inspection - Respiratory Respiratory exam: Absent: respiratory distress - Cardiovascular Cardiovascular Exam: Present: tachycardia - GI/Abdominal GI/Abdominal exam: Absent: distended - Expanded Lower Extremity Exam Right Knee exam: Present: tenderness, swelling, erythema, effusion. Absent: ecchymosis, deformity, crepidus, dislocation Lower Leg exam: Present: tenderness, swelling Ankle exam: Present: swelling Neuro vascular tendon exam: Present: no vascular compromise. Absent: pulse deficit, abnormal cap refill, motor deficit, sensory deficit, extremity cold to touch Gait: Positive: observed and limited by pain - Back Exam Back exam: Present: normal inspection - Neurological Exam Neurological exam: Present: alert, oriented X3 - Psychiatric Psychiatric exam: Present: normal affect, normal mood - Skin Skin exam: Present: warm, dry, intact, normal color ED Course Vital Signs 11/03/21 04:54 Temperature 97.4 F L Pulse Rate 107 H Respiratory 18 Rate Blood Pressure 159/109 O2 Sat by Pulse 99 Oximetry ED Medical Decision Making - Radiology Data Radiology results: report reviewed Right lower extremity venous Doppler: IMPRESSION: No sonographic evidence for DVT in the right lower extremity. Knee effusion. - Medical Decision Making 56-year-old white male with no past medical history presents to the emergency department for evaluation of right knee pain. He states that he has had the knee pain for over a week and on last Wednesday he was getting out of the car and felt like a torque in his knee and has been having pain since then. He was seen here Wednesday a week ago had a negative x-ray, and was diagnosed with a right knee sprain. He states that he has been [employer] wrapped and he stayed off work for 2 days, but then he worked for the last 2 2 days and has had significant swelling and pain to the right knee and right calf since then. He denies any new injury. He denies chest pain, shortness of breath, and hemoptysis. Right lower extremity venous Doppler negative for DVT but did note moderate to large right knee effusion. Pain only minimally improved after medications. No fever or signs of septic joint noted. Patient was advised to follow-up with orthopedics as previously advised for possible drainage of knee effusion. He was advised to take medications as prescribed. Return to the emergency department if new symptoms or worsening symptoms. He verbalized understanding of and agreement with plan of care Critical care attestation.: If time is entered above; I have spent that time in minutes in the direct care of this critically ill patient, excluding procedure time. ED Disposition Clinical Impression: Knee effusion, right Disposition: 01 HOME / SELF CARE / HOMELESS Is pt being admited?: No Does the pt Need Aspirin: No Condition: Stable Instructions: Knee Effusion, [id number] Additional Instructions: Take medications as prescribed. Follow-up with orthopedics for further evaluation and management. Return to the emergency department for any concerning symptoms. Prescriptions: methylPREDNISolone [Medrol 4MG DOSEPAK (21 tabs)] 4 mg PO DAILY #1 pack Acetaminophen/Codeine [Tylenol /Codeine # 3 tab] 1 tab PO Q6H PRN #12 tab PRN Reason: Pain , Severe (7-10) Referrals: PITA CHAPMAN MD [Staff Physician] - 3-5 Days Forms: Work/School Release Form(ED) Time of Disposition: 10:26
== END 2021-11-03 10:26 | disposition home or self-care (01) ==
LOC: ED 04:49
DX: M25.461 Effusion, right knee (principal)
CPT/HCPCS: 99283

== ENCOUNTER 2022-02-20 09:35 | Emergency (ER) | payer OTHER ==
[2022-02-20] MEDS ORDERED: KETOROLAC 30 MG/1 ML INJ IV ONE (10:26)
[2022-02-20] MEDS ORDERED: ONDANSETRON 4 MG/2 ML INJ IV ONE (10:26)
[2022-02-20] MEDS ORDERED: HYDROmorphone 0.5 MG/0.5 ML INJ IV ONE (10:28)
--- NOTE | 2022-02-20 10:37 | Emergency Department Report ---
ED Chest Pain HPI - General Chief Complaint: Extremity Problem,Nontraumatic Stated Complaint: GOUT/CHEST PAIN Time Seen by Provider: 02/20/22 10:09 Source: patient, EMS Mode of arrival: Stretcher Limitations: No Limitations - History of Present Illness Initial Comments: 56-year-old male with a past medical history of gout presents to the hospital complaining of nontraumatic right knee and right ankle pain for the past 2 days and pleuritic left-sided chest pain since yesterday. As per medical record patient has been here in the past for nontraumatic right knee swelling and pain. Patient suspects he is currently having a gout flare. Pain is 9/10 intensity, worse with movement and palpation with swelling to the right knee and right ankle. Patient also began to have sharp left-sided chest pain worse with inspiration. He denies calf tenderness, history of PE/DVT, or recent travel. As per medical record patient has had a negative Doppler of the right lower extremity in October Severity scale (0 -10): 9 - Related Data Previous Rx's Medication Instructions Recorded Last Taken Type Promethazine [Phenergan] 25 mg PO Q8HR PRN #10 tab 04/15/21 Unknown Rx methylPREDNISolone [Medrol 4MG 4 mg PO DAILY 6 Days #1 tab.ds.pk 05/24/21 Unknown Rx DOSEPAK (21 tabs)] predniSONE [Deltasone] 60 mg PO QDAY #15 tab 05/26/21 Unknown Rx Colchicine [Colcrys] 0.6 mg PO DAILY #30 tablet 10/02/21 Unknown Rx Indomethacin 50 mg PO Q8H PRN #60 capsule 10/02/21 Unknown Rx Acetaminophen [Non-Aspirin Extra 650 mg PO Q6HR PRN #30 tablet 10/26/21 Unknown Rx Strength] Ibuprofen [Motrin] 600 mg PO Q8H PRN #30 tablet 10/26/21 Unknown Rx Acetaminophen/Codeine [Tylenol 1 tab PO Q6H PRN #12 tab 11/03/21 Unknown Rx /Codeine # 3 tab] methylPREDNISolone [Medrol 4MG 4 mg PO DAILY #1 pack 11/03/21 Unknown Rx DOSEPAK (21 tabs)] Colchicine 0.6 mg PO Q1HR #3 tab 02/20/22 Unknown Rx Prednisone [predniSONE 10 mg 10 mg PO .TAPER #1 tab 02/20/22 Unknown Rx (6-Day Pack, 21 Tabs)] oxyCODONE /ACETAMINOPHEN [Percocet 1 tab PO Q6HR PRN #15 tablet 02/20/22 Unknown Rx 5/325] Allergies Allergy/AdvReac Type Severity Reaction Status Date / Time No Known Allergies Allergy Verified 05/23/21 23:50 Heart Score - HEART Score History: Slightly suspicious EKG: Normal Age: 45-65 Risk factors: 1-2 risk factors Troponin: < normal limit HEART Score: 2 - EKG Read Time Time EKG Completed: 10:00 EKG Read Time: 10:03 ED Review of Systems ROS: Stated complaint: GOUT/CHEST PAIN Other details as noted in HPI Comment: All other systems reviewed and negative ED Past Medical Hx - Past Medical History Hx Heart Attack/AMI: Yes Hx Renal Disease: No Hx Kidney Stones: Yes Additional medical history: CAD, afib, gout, kidney stones - Surgical History Additional Surgical History: lithotripsy, extensive surgical history, left knee replace - Social History Smoking Status: Never Smoker Substance Use Type: None - Medications Home Medications: Home Medications Medication Instructions Recorded Confirmed Last Taken Type Promethazine [Phenergan] 25 mg PO Q8HR PRN #10 tab 04/15/21 Unknown Rx methylPREDNISolone [Medrol 4MG 4 mg PO DAILY 6 Days #1 tab.ds.pk 05/24/21 Unknown Rx DOSEPAK (21 tabs)] predniSONE [Deltasone] 60 mg PO QDAY #15 tab 05/26/21 Unknown Rx Colchicine [Colcrys] 0.6 mg PO DAILY #30 tablet 10/02/21 Unknown Rx Indomethacin 50 mg PO Q8H PRN #60 capsule 10/02/21 Unknown Rx Acetaminophen [Non-Aspirin Extra 650 mg PO Q6HR PRN #30 tablet 10/26/21 Unknown Rx Strength] Ibuprofen [Motrin] 600 mg PO Q8H PRN #30 tablet 10/26/21 Unknown Rx Acetaminophen/Codeine [Tylenol 1 tab PO Q6H PRN #12 tab 11/03/21 Unknown Rx /Codeine # 3 tab] methylPREDNISolone [Medrol 4MG 4 mg PO DAILY #1 pack 11/03/21 Unknown Rx DOSEPAK (21 tabs)] Colchicine 0.6 mg PO Q1HR #3 tab 02/20/22 Unknown Rx Prednisone [predniSONE 10 mg 10 mg PO .TAPER #1 tab 02/20/22 Unknown Rx (6-Day Pack, 21 Tabs)] oxyCODONE /ACETAMINOPHEN [Percocet 1 tab PO Q6HR PRN #15 tablet 02/20/22 Unknown Rx 5/325] ED Physical Exam - General Limitations: No Limitations - Other Other exam information: General: No acute distress Head: Atraumatic Eyes: normal appearance ENT: Moist mucous membranes Neck: Normal appearance, no midline tenderness Chest: Clear to auscultation bilaterally, chest wall nontender CV: Tachycardic regular rhythm Abdomen: Soft, normal bowel sounds, nontender, nondistended, no rebound or guarding Back: Normal inspection Extremity: Right knee effusion with limited range of movement secondary to pain mild warmth. No erythema. Pain with swelling to right medial ankle with limited movement secondary to pain Neuro: Alert O x 3, no facial asymmetry, speech clear, no gross motor sensory deficit Psych: Appropriate behavior Skin: No rash ED Course Vital Signs 02/20/22 02/20/22 02/20/22 09:43 10:00 10:16 Temperature 98.4 F Pulse Rate 130 H 125 H Respiratory 18 22 Rate Blood Pressure Blood Pressure 110/60 [Left] O2 Sat by Pulse 99 Oximetry 02/20/22 02/20/22 02/20/22 10:31 10:45 10:59 Temperature 98.6 F Pulse Rate 123 H 124 H 124 H Respiratory 14 14 15 Rate Blood Pressure Blood Pressure 104/80 [Left] O2 Sat by Pulse 98 98 Oximetry 02/20/22 02/20/22 02/20/22 11:00 11:01 11:15 Temperature Pulse Rate 123 H 116 H Respiratory 14 19 Rate Blood Pressure 104/80 104/80 Blood Pressure [Left] O2 Sat by Pulse 99 98 96 Oximetry 02/20/22 02/20/22 02/20/22 11:31 11:45 12:01 Temperature Pulse Rate 116 H 117 H 117 H Respiratory 14 16 20 Rate Blood Pressure 104/80 104/80 112/75 Blood Pressure [Left] O2 Sat by Pulse 98 97 96 Oximetry 02/20/22 02/20/22 02/20/22 12:15 12:31 12:45 Temperature Pulse Rate 110 H 115 H 107 H Respiratory 17 20 17 Rate Blood Pressure 112/75 112/75 112/75 Blood Pressure [Left] O2 Sat by Pulse 98 97 97 Oximetry 02/20/22 02/20/22 02/20/22 13:01 13:15 13:31 Temperature Pulse Rate 109 H 109 H 108 H Respiratory 22 18 15 Rate Blood Pressure 122/74 122/74 122/74 Blood Pressure [Left] O2 Sat by Pulse 97 97 97 Oximetry 02/20/22 02/20/22 13:45 14:01 Temperature Pulse Rate 110 H Respiratory 16 Rate Blood Pressure 122/74 116/84 Blood Pressure [Left] O2 Sat by Pulse 97 95 Oximetry - Reevaluation(s) Reevaluation #1: 02/20/22 13:31 hr 106 with pain reduction, pain currently 4/10. requesting additional meds 02/20/22 14:20 Patient states he is feeling better and has called his ride and is ready to go home PRATEEK score - Prateek Score Age > 65: (0) No Aspirin use within the Past 7 Days: (0) No 3 or more CAD Risk Factors: (0) No 2 or more Angina events in past 24 hrs: (0) No Known CAD with more than 50% Stenosis: (0) No Elevated Cardiac Markers: (0) No ST Deviation Greater than 0.5mm: (0) No PRATEEK Score: 0 ED Medical Decision Making - Lab Data Result diagrams: 02/20/22 10:32 02/20/22 10:32 Lab Results 02/20/22 02/20/22 02/20/22 Range/Units 10:32 10:32 10:32 WBC 12.8 H (4.5-11.0) K/mm3 RBC 5.26 H (3.65-5.03) M/mm3 Hgb 15.8 H (11.8-15.2) gm/dl Hct 47.7 H (35.5-45.6) % MCV 91 (84-94) fl MCH 30 (28-32) pg MCHC 33 (32-34) % RDW 14.3 (13.2-15.2) % Plt Count 222 (140-440) K/mm3 Lymph % (Auto) 7.6 L (13.4-35.0) % Miner % (Auto) 10.6 H (0.0-7.3) % Eos % (Auto) 0.1 (0.0-4.3) % Baso % (Auto) 0.2 (0.0-1.8) % Lymph # (Auto) 1.0 L (1.2-5.4) K/mm3 Miner # (Auto) 1.4 H (0.0-0.8) K/mm3 Eos # (Auto) 0.0 (0.0-0.4) K/mm3 Baso # (Auto) 0.0 (0.0-0.1) K/mm3 Seg Neutrophils % 81.5 H (40.0-70.0) % Seg Neutrophils # 10.5 H (1.8-7.7) K/mm3 PT 13.7 (12.2-14.9) Sec. INR 0.95 (0.87-1.13) APTT 30.2 (24.2-36.6) Sec. D-Dimer 154.73 (0-234) ng/mlDDU Sodium 135 L (137-145) mmol/L Potassium 4.3 (3.6-5.0) mmol/L Chloride 102.2 (98-107) mmol/L Carbon Dioxide 19 L (22-30) mmol/L Anion Gap 18 mmol/L BUN 18 (9-20) mg/dL Creatinine 1.4 H (0.8-1.3) mg/dL Estimated GFR 52 ml/min BUN/Creatinine Ratio 13 % Glucose 125 H (75-100) mg/dL Uric Acid 8.8 H (3.5-7.6) mg/dL Calcium 9.4 (8.4-10.2) mg/dL Total Bilirubin 0.90 (0.1-1.2) mg/dL AST 11 (5-40) units/L ALT 10 (7-56) units/L Alkaline Phosphatase 75 (35-129) units/L Troponin T (0.00-0.029) ng/mL Total Protein 7.4 (6.3-8.2) g/dL Albumin 4.3 (3.9-5) g/dL Albumin/Globulin Ratio 1.4 % 02/20/22 Range/Units 10:43 WBC (4.5-11.0) K/mm3 RBC (3.65-5.03) M/mm3 Hgb (11.8-15.2) gm/dl Hct (35.5-45.6) % MCV (84-94) fl MCH (28-32) pg MCHC (32-34) % RDW (13.2-15.2) % Plt Count (140-440) K/mm3 Lymph % (Auto) (13.4-35.0) % Miner % (Auto) (0.0-7.3) % Eos % (Auto) (0.0-4.3) % Baso % (Auto) (0.0-1.8) % Lymph # (Auto) (1.2-5.4) K/mm3 Miner # (Auto) (0.0-0.8) K/mm3 Eos # (Auto) (0.0-0.4) K/mm3 Baso # (Auto) (0.0-0.1) K/mm3 Seg Neutrophils % (40.0-70.0) % Seg Neutrophils # (1.8-7.7) K/mm3 PT (12.2-14.9) Sec. INR (0.87-1.13) APTT (24.2-36.6) Sec. D-Dimer (0-234) ng/mlDDU Sodium (137-145) mmol/L Potassium (3.6-5.0) mmol/L Chloride (98-107) mmol/L Carbon Dioxide (22-30) mmol/L Anion Gap mmol/L BUN (9-20) mg/dL Creatinine (0.8-1.3) mg/dL Estimated GFR ml/min BUN/Creatinine Ratio % Glucose (75-100) mg/dL Uric Acid (3.5-7.6) mg/dL Calcium (8.4-10.2) mg/dL Total Bilirubin (0.1-1.2) mg/dL AST (5-40) units/L ALT (7-56) units/L Alkaline Phosphatase (35-129) units/L Troponin T < 0.010 (0.00-0.029) ng/mL Total Protein (6.3-8.2) g/dL Albumin (3.9-5) g/dL Albumin/Globulin Ratio % - EKG Data -: EKG Interpreted by Me (Previous inferior infarct) EKG shows normal: sinus rhythm, ST-T waves (No ST elevation) Rate: tachycardia (125) - Radiology Data Radiology results: report reviewed CHEST 1 VIEW 02/20/2022 12:47 PM INDICATION / CLINICAL INFORMATION: Pleuritic left-sided chest pain. COMPARISON: None available. FINDINGS: SUPPORT DEVICES: None. HEART / MEDIASTINUM: Heart size is borderline. LUNGS / PLEURA: No significant pulmonary or pleural abnormality. No pneumothorax. ADDITIONAL FINDINGS: No significant additional findings. IMPRESSION: 1. Borderline heart size. Lungs clear. - Medical Decision Making 56-year old male pain to the hospital complaining of right knee, right ankle, and chest pain. Joint pain likely secondary to gout. Patient has a history of recurrent right knee pain and effusion secondary to the same. Patient has atypical pleuritic left-sided anterior chest pain with a low pretest probability for PE/DVT and a negative D-dimer. No hypoxia. Normal O2 sat on room air. Tachycardia improved with pain reduction and IV fluids and patient is ready for discharge. Critical Care Time: No Critical care attestation.: If time is entered above; I have spent that time in minutes in the direct care of this critically ill patient, excluding procedure time. ED Disposition Clinical Impression: Gout flare, Pleuritic chest pain, Effusion, right knee Disposition: 01 HOME / SELF CARE / HOMELESS Is pt being admited?: No Does the pt Need Aspirin: No Condition: Stable Instructions: Nonspecific Chest Pain, Adult, Low-Purine Eating Plan, Knee Effusion, [id number] Additional Instructions: Take the medication as prescribed. Follow-up with your doctor or doctor/clinic provided. Return if symptoms worsen as indicated by your discharge instructions. Prescriptions: Colchicine 0.6 mg PO Q1HR #3 tab oxyCODONE /ACETAMINOPHEN [Percocet 5/325] 1 tab PO Q6HR PRN #15 tablet PRN Reason: Pain Prednisone [predniSONE 10 mg (6-Day Pack, 21 Tabs)] 10 mg PO .TAPER #1 tab Referrals: JOSE GOLDSMITH MD [Staff Physician] - 3-5 Days (Primary care doctor) [facility] [Provider Group] - 3-5 Days (Orthopedic doctor) SHAYY BORJAS MD [Staff Physician] - 3-5 Days (Orthopedic doctor) Time of Disposition: 14:40
[2022-02-20 11:23] LABS: Basophils % (Auto) 0.2 % (0.0-1.8); Eosinophils % (Auto) 0.1 % (0.0-4.3); Hematocrit 47.7 % (35.5-45.6); Hemoglobin 15.8 gm/dl (11.8-15.2); Lymphocytes % (Auto) 7.6 % (13.4-35.0); Mean Corpuscular HGB Conc 33 % (32-34); Mean Corpuscular Volume 91 fl (84-94); Monocytes # (Auto) 1.4 K/mm3 (0.0-0.8); Monocytes % (Auto) 10.6 % (0.0-7.3); Platelet Count 222 K/mm3 (140-440); Red Blood Count 5.26 M/mm3 (3.65-5.03); Red Cell Distribution Width 14.3 % (13.2-15.2)
[2022-02-20 11:36] LABS: INR 0.95 (0.87-1.13); Partial Thromboplastin Time 30.2 Sec. (24.2-36.6)
[2022-02-20] MEDS ORDERED: SODIUM CHLORIDE 0.9% 1000 ML 1,000 ML IV ONE (11:47)
[2022-02-20 11:54] LABS: Albumin 4.3 g/dL (3.9-5); Calcium 9.4 mg/dL (8.4-10.2); Uric Acid 8.8 mg/dL (3.5-7.6)
--- NOTE | 2022-02-20 13:02 | XRay Report ---
CHEST 1 VIEW 02/20/2022 12:47 PM INDICATION / CLINICAL INFORMATION: Pleuritic left-sided chest pain. COMPARISON: None available. FINDINGS: SUPPORT DEVICES: None. HEART / MEDIASTINUM: Heart size is borderline. LUNGS / PLEURA: No significant pulmonary or pleural abnormality. No pneumothorax. ADDITIONAL FINDINGS: No significant additional findings. IMPRESSION: 1. Borderline heart size. Lungs clear. Signer Name: Navneet Luna Jr, MD Signed: 02/20/2022 12:57 PM Workstation Name: [id number]
[2022-02-20] MEDS ORDERED: HYDROmorphone 1 MG/1 ML INJ IV ONE (13:30)
[2022-02-20] MEDS ORDERED: methylPREDNISolone Sod Succinate 125 MG/2 ML INJ IV ONE (13:30)
[2022-02-20 14:36] VITALS: BP 116/84
--- NOTE | 2022-02-22 19:29 | Electrocardiograph Report ---
[facility] Test Date: 2022-02-20 Test Time: 10:00:46 Pat Name: AMY ALEXANDRE Department: Room: Gender: M [employer] Teacher: CATHERINE : 1965 Requested By: KARL TRIPLETT Order Number: [id number] Reading MD: Ramon Hoang Measurements Intervals [place] Rate: 125 P: 56 LA: 167 QRS: 0 QRSD: 81 T: 35 QT: 297 QTc: 429 Interpretive Statements Sinus tachycardia Inferior infarct, old No previous ECG available for comparison Electronically Signed On 02-22-2022 19:29:06 EDT by Ramon Hoang
== END 2022-02-20 15:01 | disposition home or self-care (01) ==
LOC: ED 09:35
DX: M10.9 Gout, unspecified (principal); R07.89 Other chest pain; M25.461 Effusion, right knee
CPT/HCPCS: 36415; 71045; 80053; 84484; 84550; 85025; 85379; 85610; 85730; 93005; 96361; 96374; 96375; 96376; 99284; J1170; J1885; J2405; J2930; J7030

== ENCOUNTER 2022-02-23 01:16 | Emergency (ER) | payer SELFPAY ==
[2022-02-23 03:36] VITALS: BP 140/82
--- NOTE | 2022-02-24 08:28 | Electrocardiograph Report ---
[facility] Test Date: 2022-02-23 Test Time: 02:18:54 Pat Name: AMY ALEXANDRE Department: Room: Gender: M [employer] Adviser: ROSEMARIE : 1965 Requested By: ED DOC Order Number: [id number] Reading MD: Juan Pablo Bond Measurements Intervals [place] Rate: 123 P: 44 NC: 166 QRS: -46 QRSD: 78 T: 40 QT: 299 QTc: 428 Interpretive Statements Sinus tachycardia Inferior infarct, old poor r wave progression Compared to ECG 02/20/2022 10:00:46 No significant changes Electronically Signed On 02-24-2022 8:27:38 EDT by Juan Pablo Bond
== END 2022-02-23 17:25 | disposition left against medical advice (07) ==
LOC: ED 01:16
DX: R07.9 Chest pain, unspecified (principal); Z53.21 Procedure and treatment not carried out due to patient leaving prior to being seen by health care provider
CPT/HCPCS: 93005